=== PATIENT | female | born 1955 | race Caucasian/White ===

== ENCOUNTER 2016-05-24 12:11 | Day surgery (SDC) | payer OTHER ==
[~2016-05-24] VITALS: Ht 162.6 cm; Wt 78.0 kg
[2016-05-24] VITALS (11 sets, daily range): BP systolic 101–126; BP diastolic 62–74; PULSE 16–66; RESP 13–18; Ht 162.6 cm; Wt 78.0 kg
[2016-05-24 13:19] LABS: ADD SCAN DIFF NO
[2016-05-24 13:21] LABS: BASOPHILS % 0.7 % (0.0-2.0); EOSINOPHILS # 0.1 10^3/ul (0.0-0.5); EOSINOPHILS % 2.4 % (0.0-7.0); HEMATOCRIT 37.9 % (37.0-47.0); HEMOGLOBIN 12.7 g/dl (12.0-16.0); LYMPHOCYTES # 1.8 10^3/ul (0.8-2.9); MEAN CORPUSCULAR HEMOGLOBIN 31.1 pg (29.0-33.0); MEAN CORPUSCULAR HGB CONC 33.5 g/dl (32.0-37.0); MEAN CORPUSCULAR VOLUME 92.9 fl (82.0-101.0); MEAN PLATELET VOLUME 9.6 fl (7.4-10.4); MONOCYTE # 0.5 10^3/ul (0.3-0.9); MONOCYTES % 9.2 % (0.0-11.0); NEUTROPHIL # 3.4 10^3/ul (1.6-7.5); NEUTROPHILS % 57.5 % (39.0-77.0); PLATELET COUNT 279 10^3/UL (140-415); RED BLOOD COUNT 4.08 10^6/ul (4.20-5.40); WHITE BLOOD COUNT 5.8 10^3/ul (4.8-10.8)
[2016-05-24 13:35] LABS: INR 0.98
[2016-05-24 13:38] LABS: POTASSIUM 3.7 mmol/L (3.5-5.1)
[2016-05-24 13:43] LABS: CALCIUM 9.4 mg/dl (8.4-10.2); CREATININE 0.6 mg/dl (0.44-1.00); PARTIAL THROMBOPLASTIN TIME 30.5 Sec (25.0-35.0)
[2016-05-24] MEDS ORDERED: BUPIVACAINE 0.25% (MPF) 10 ML 10 ML VIAL ONE (14:04)
--- NOTE | 2016-05-24 14:27 | RADRPT ---
PROCEDURE: XR Chest. CLINICAL INDICATION: Preoperative, chest mass TECHNIQUE: Single frontal view of the chest was obtained COMPARISON: 06/13/2013 FINDINGS: The heart and mediastinum are within normal limits. The lungs are clear. There is no pleural effusion or pneumothorax. RPTAT: AA IMPRESSION: No acute disease. .Blade Reynolds MD, MD Date Time Electronically viewed and signed by .Blade Reynolds MD, on 05/24/2016 14:27 .S/
[2016-05-24] MEDS ORDERED: PROPOFOL 40 ML ONE (15:51)
[2016-05-24] MEDS ORDERED: LIDOCAINE 2% (SDV) 5 ML INJ ONE (15:51)
[2016-05-24] MEDS ORDERED: FENTAnyl 50 MCG/ML VIAL ONE (15:53)
[2016-05-24] MEDS ORDERED: CEFAZOLIN 1 GM INJ ONE (16:03)
[2016-05-24] MEDS ORDERED: HYDROCODONE/APAP (5/325) TAB PO ONE (16:30)
[2016-05-24] MEDS ORDERED: ONDANSETRON 4 MG INJ IV PRN (17:00)
[2016-05-24] MEDS ORDERED: MEPERIDINE 25 MG INJ IV PRN (17:00)
[2016-05-24] MEDS ORDERED: FENTAnyl 50 MCG/ML VIAL IV PRN ×3 (17:00)
[2016-05-24] MEDS ORDERED: OXYCODONE/ACETAMINOPHEN (5/325) TAB PO PRN (17:00)
[2016-05-24] MEDS ORDERED: hydrALAzine 20 MG INJ IV PRN (17:00)
[2016-05-24] MEDS ORDERED: EPHEDrine SULFATE 50 MG/5 ML SYG IV PRN (17:00)
[2016-05-24] MEDS ORDERED: LABETALOL HCL 20MG INJ IV PRN (17:00)
--- NOTE | 2016-05-24 17:03 | OPR ---
DATE OF OPERATION: 05/24/2016 INDICATION: This is a 60-year-old female with a chest mass. She requests surgical excision. Risks , alternatives, benefits, and personnel were discussed with the patient. The patient expressed unde rstanding and consents to the operation. PREOPERATIVE DIAGNOSIS: Chest mass. POSTOPERATIVE DIAGNOSIS: Chest mass. OPERATION PERFORMED 1. Excision of chest mass; a 6-cm incision and 5-cm mass. 2. Localized adjacent tissue transfer with the use of skin flaps. SURGEON: Loc Juárez MD SPECIMEN: Chest mass. COMPLICATIONS: None. ANESTHESIA: General. PROCEDURE IN DETAIL: The patient was taken to the OR, prepped and draped in the usual sterile fashi on. A surgical timeout was performed. IV antibiotics were given. A transverse incision was made over the chest mass with a 15-blade. Dissection cautery was carried down circumferentially around the chest mass, inclusive of a portion of the skin. The mass was exci sed. There was good hemostasis due to the tissue defect. Localized adjacent tissue transfer with t he use of skin flaps was performed. Multilayer closure with interrupted 3-0 Vicryl and skin vtior . Local anesthesia was injected. Dry dressings were applied. Dictated By: LOC PRIDE/CHARLES Conf#: [id number] DID#: [id number]
--- NOTE | 2016-05-24 21:02 | RADRPT ---
Vent Rate: 65 bpm RR Interval: 0 msec [place] Interval: 146 msec QRS Duration: 88 msec QT Interval: 432 msec QTC Interval: 449 msec P-R-T [place]: 25 - 46 - 46 degrees Normal sinus rhythm Normal ECG Electronically Signed By: Tank Fiore [id number]
== END 2016-05-24 18:25 | disposition home or self-care (01) ==
LOC: SDS 12:11
PROVIDERS: ATTEND Surgery
DX: L72.0 Epidermal cyst (principal)
CPT/HCPCS: 14000; 71010; 80048; 85025; 85610; 85730; 88307; 93005; J0690; J3010; Z7512; Z7610

== ENCOUNTER 2016-12-26 19:42 | Emergency (ER) | payer OTHER ==
[~2016-12-26] VITALS: Ht 157.5 cm; Wt 74.3 kg
[2016-12-26 19:47] VITALS: Ht 157.5 cm; Wt 74.3 kg
[2016-12-26] MEDS ORDERED: KETOROLAC 30 MG INJ IM STA (21:50)
--- NOTE | 2016-12-26 22:41 | RADRPT ---
PROCEDURE: XR Cervical Spine. CLINICAL INDICATION: Cervical spine pain. TECHNIQUE: AP, lateral and odontoid views of the cervical spine were performed. The images were re viewed on a PACS workstation. COMPARISON: None available FINDINGS: There is trace anterolisthesis of C4-C5 and C5-C6. There are small anterior osteophytes with modera te disc-space narrowing at C5-6. There are mild to moderate discogenic endplate changes at this leve l. The vertebral body heights are maintained. There is diffuse mild osteopenia. There is no evidenc e of fracture or dislocation. There is diffuse mild facet arthropathy. There is preservation of the remaining intervertebral disc spaces. There are no abnormal calcifications. The prevertebral soft ti ssues are normal. No radiopaque foreign bodies are identified. IMPRESSION: 1. Moderate spondylosis/degenerative enthesopathy at C5-6 with grade 1 anterolisthesis. 2. Diffuse mild facet spondylosis . 3. No acute fracture. RPTAT: HGAS .Spencer Lee MD, MD Date Time Electronically viewed and signed by .Spencer Lee MD, on 12/26/2016 22:40 .S/
--- NOTE | 2016-12-26 22:43 | RADRPT ---
PROCEDURE: XR Lumbar Spine. CLINICAL INDICATION: Back pain. TECHNIQUE: Complete lumbar spine study including AP, lateral, obliques and coned L5-S1 views was p erformed. COMPARISON: No similar studies are submitted for comparison. FINDINGS: Vertebral body stature and alignment maintained. There is no evidence of fracture or subluxation. N o destructive osseous lesions are seen. IMPRESSION: No evidence of compression fracture. RPTAT: HIKT .Jack Christiansen MD, MD Date Time Electronically viewed and signed by .Jack Christiansen MD, on 12/26/2016 22:43 .T/
--- NOTE | 2016-12-26 22:44 | RADRPT ---
PROCEDURE: XR finger. CLINICAL INDICATION: Trauma. TECHNIQUE: AP, lateral and oblique views of the right first finger was obtained. COMPARISON: There are no similar studies submitted for comparison. FINDINGS: There is normal bone mineralization.There is no acute fracture or dislocation.No osseous erosions ar e identified. The joint spaces are within normal limits.There is no soft tissue swelling. IMPRESSION: No acute fracture or dislocation. RPTAT: HIKT .Jack Christiansen MD, MD Date Time Electronically viewed and signed by .Jack Christiansen MD, on 12/26/2016 22:44 .T/
--- NOTE | 2016-12-26 23:57 | ERD ---
ER Documentation Chief Complaint Chief Complaint bib self, right arm and lower back pain x 2 weeks, caused by work HPI This is a 61 year-old female who presents the emergency department today complaining of neck pain that goes into her right arm, right thumb pain and low back pain. States that she has had this pain for the past 3 weeks. . States that one year ago she had a fall. States that she thinks she injured it at work. She has taken ibuprofen with limited improvement in symptoms. Denies any fevers or chills, trauma, shortness of breath. Denies any loss of bowel or bladder control. ROS All systems reviewed and are negative except as per history of present illness. Medications Home Meds Active Scripts Naproxen* (Naprosyn*) 500 Mg Tablet, 500 MG PO BID Y for PAIN AND/OR INFLAMMATION, #30 TAB Prov:MANUEL AYALA PA-C 12/27/16 Tramadol HCl (Tramadol HCl) 50 Mg Tablet, 50 MG PO Q4 Y for PAIN, #20 TAB Prov:MANUEL AYALA PA-C 12/27/16 Allergies Allergies: Coded Allergies: No Known Drug Allergy (Verified Allergy, Mild, 05/24/16) PMhx/Soc History of Surgery: No Anesthesia Reaction: No Hx Neurological Disorder: No Hx Respiratory Disorders: No Hx Cardiac Disorders: No Hx Psychiatric Problems: No Hx Miscellaneous Medical Probl: Yes (RT CHEST MASS) Hx Alcohol Use: No Hx Substance Use: No Hx Tobacco Use: No Smoking Status: Never smoker Physical Exam Vitals Vital Signs Date Time Temp Pulse Resp B/P Pulse Ox O2 Delivery O2 Flow Rate FiO2 12/26/16 19:47 98.5 81 18 162/80 100 Physical Exam Const: NAD Head: Atraumatic Eyes: Normal Conjunctiva ENT: Normal External Ears, Nose and Mouth. Neck: Full range of motion..~ No meningismus. Midline tenderness with bilateral paraspinal tenderness. Resp: Clear to auscultation bilaterally Cardio: Regular rate and rhythm, no murmurs Abd: Soft, non tender, non distended. Normal bowel sounds Skin: No petechiae or rashes Back: Lumbar spine midline tenderness. No paraspinal tenderness. Full active range of motion. No CVA tenderness. Ext: No cyanosis, or edema. No erythema or warmth. Full active range of motion. Pulses 2+. Distal neurovascularly intact. Right thumb tenderness to palpation. Good cap refill. Neur: Awake and alert Psych: Normal Mood and Affect Results 24 hrs Current Medications Medications (Trade) Dose Ordered Sig/Tr Route PRN Reason Start Time Stop Time Status Last Admin Dose Admin Ketorolac Tromethamine (Toradol) 30 mg ONCE STAT IM 12/26/16 21:50 12/26/16 21:51 DC 12/26/16 22:48 DIAGNOSTIC IMAGING REPORT Patient: NENO ORTIZ : 1955 Age: 61 Sex: F MR #: [id number] DOS: 12/26/16 0000 Ordering MD: MANUEL AYALA PA-C Location: [facility] Room/Bed: PROCEDURE: XR Cervical Spine. CLINICAL INDICATION: Cervical spine pain. TECHNIQUE: AP, lateral and odontoid views of the cervical spine were performed. The images were reviewed on a PACS workstation. COMPARISON: None available FINDINGS: There is trace anterolisthesis of C4-C5 and C5-C6. There are small anterior osteophytes with moderate disc-space narrowing at C5-6. There are mild to moderate discogenic endplate changes at this level. The vertebral body heights are maintained. There is diffuse mild osteopenia. There is no evidence of fracture or dislocation. There is diffuse mild facet arthropathy. There is preservation of the remaining intervertebral disc spaces. There are no abnormal calcifications. The prevertebral soft tissues are normal. No radiopaque foreign bodies are identified. IMPRESSION: 1. Moderate spondylosis/degenerative enthesopathy at C5-6 with grade 1 anterolisthesis. 2. Diffuse mild facet spondylosis . 3. No acute fracture. RPTAT: HGAS .Spencer Lee MD, Date Time Electronically viewed and signed by .Spencer Lee MD, MD on 12/26/2016 22: 40 .S/ CC: MANUEL AYALA PA-C DIAGNOSTIC IMAGING REPORT Patient: NENO ORTIZ : 1955 Age: 61 Sex: F MR #: [id number] DOS: 12/26/16 0000 Ordering MD: MANUEL AYALA PA-C Location: [facility] Room/Bed: PROCEDURE: XR Lumbar Spine. CLINICAL INDICATION: Back pain. TECHNIQUE: Complete lumbar spine study including AP, lateral, obliques and coned L5-S1 views was performed. COMPARISON: No similar studies are submitted for comparison. FINDINGS: Vertebral body stature and alignment maintained. There is no evidence of fracture or subluxation. No destructive osseous lesions are seen. IMPRESSION: No evidence of compression fracture. RPTAT: HIKT .Jack Christiansen MD, MD Date Time Electronically viewed and signed by .Jack Christiansen MD, MD on 12/26/2016 22:43 .T/ CC: MANUEL AYALA PA-C DIAGNOSTIC IMAGING REPORT Patient: NENO ORTIZ : 1955 Age: 61 Sex: F MR #: [id number] DOS: 12/26/16 0000 Ordering MD: MANUEL AYALA PA-C Location: [facility] Room/Bed: PROCEDURE: XR finger. CLINICAL INDICATION: Trauma. TECHNIQUE: AP, lateral and oblique views of the right first finger was obtained. COMPARISON: There are no similar studies submitted for comparison. FINDINGS: There is normal bone mineralization.There is no acute fracture or dislocation.No osseous erosions are identified. The joint spaces are within normal limits.There is no soft tissue swelling. IMPRESSION: No acute fracture or dislocation. RPTAT: HIKT .Jack Christiansen MD, MD Date Time Electronically viewed and signed by .Jack Christiansen MD, MD on 12/26/2016 22:44 .T/ CC: MANUEL AYALA PA-C Procedures/MDM This a 61-year-old female who presents the emergency department today complaining of multiple pain complaints for the past 3 weeks. She was complaining of neck pain with radicular symptoms and therefore did obtain images Per the radiology report is of the right thumb show no acute fracture dislocation. There is no osseous erosions. Joint spaces are within normal limits. There is no soft tissue swelling. Images of the lumbar spine show no evidence of compression fracture. There is no subluxation. Images of the cervical spine show mild to moderate degenerative changes at C5 and C6. There is diffuse mild facet spondylosis. There is no acute fracture. There is diffuse mild osteopenia. Patient is afebrile and otherwise well-appearing. She has no CVA tenderness and denies any dysuria night do not feel that she requires a UA. Of low suspicion for urinary tract infection, pyelonephritis or nephrolithiasis. I have low suspicion for septic joint, gout, cauda equina or abscess. Patient oxygen saturation 100% there is no swelling or warmth of the right extremity. I have low suspicion for DVT. Symptoms at this time is consistent with neck pain and low back pain likely sprain versus strain versus contusion versus degenerative disc disease. I have explained this to the patient. Given Toradol here in the emergency department. She will be given a short course of tramadol and Naprosyn for home. At this time the patient is stable for discharge and outpatient management. Patient should follow up with their PCP in the next 1-2 days. They may return to the emergency department sooner for any persistent or worsening of symptoms. Patient understood and agreed with the plan. Departure Diagnosis: Primary Impression: Neck pain Additional Impression: Back pain Back pain location: low back pain Chronicity: unspecified Back pain laterality: midline Sciatica presence: without sciatica Qualified Code: M54.5 - Midline low back pain without sciatica, unspecified chronicity Condition: Fair MANUEL AYALA PA-C Dec 26, 2016 23:57
[2016-12-27] MEDS ORDERED: TRAM50TA2 PO (00:18)
[2016-12-27] MEDS ORDERED: NAPR-260 PO (00:19)
== END 2016-12-27 00:33 | disposition home or self-care (01) ==
LOC: FTE 19:42
DX: M54.2 Cervicalgia (principal); M54.5 Low back pain
CPT/HCPCS: 72040; 72100; 73140; 96372; J1885; Z7502

== ENCOUNTER 2017-02-21 16:57 | Emergency (ER) | END 2017-02-21 19:51 | disposition home or self-care (01) ==

== ENCOUNTER 2017-11-08 11:58 | Emergency (ER) | END 2017-11-08 14:54 | disposition home or self-care (01) ==

== ENCOUNTER 2018-01-05 14:01 | Emergency (ER) | END 2018-01-05 18:16 | disposition home or self-care (01) ==

== ENCOUNTER 2018-02-07 21:11 | Emergency (ER) | payer OTHER ==
[~2018-02-07] VITALS: Wt 90.0 kg
[~2018-02-07 21:11] MED LIST: IBUP-1542 PO; LORA-441 PO; NAPR-985 PO; TRAM50TA2 PO
[2018-02-07 21:15] VITALS: Wt 90.0 kg
--- NOTE | 2018-02-07 22:24 | ERD ---
ER Documentation Chief Complaint Chief Complaint Left lower leg pain since 183, s/p fall HPI This is a 62-year-old female with a nonsignificant past medical history presents ED with complaints of left anterior knee, left anterior alatorre and left ankle pain since 6:30 PM this evening. Patient states that as she was mopping the floor of her house she had sat down and when she went to go to a standing position she started experiencing pain in her right anterior lower leg. Admits to painful range of motion, decreased range of motion and mild difficulty ambulating. Prem es tingling, numbness, lack of sensation other symptoms. No known drug allergies. ROS All systems reviewed and are negative except as per history of present illness. Medications Home Meds Active Scripts Ibuprofen* (Motrin*) 600 Mg Tab, 600 MG PO Q6H PRN for PAIN AND OR ELEVATED TEMP, #30 TAB Prov:PETRONA FLYNN DO 01/05/18 Lorazepam* (Ativan*) 0.5 Mg Tablet, 0.5 MG PO TID PRN for ANXIETY, #10 TAB Prov:JOHN CONDE MD 11/08/17 Tramadol HCl (Tramadol HCl) 50 Mg Tablet, 50 MG PO Q6 PRN for PAIN, #20 TAB Prov:JORI GRANT PA-C 02/21/17 Naproxen* (Naprosyn*) 500 Mg Tablet, 500 MG PO BID PRN for PAIN AND/OR INFLAMMATION, #30 TAB Prov:MANUEL AYALA PA-C 12/27/16 Tramadol HCl (Tramadol HCl) 50 Mg Tablet, 50 MG PO Q4 PRN for PAIN, #20 TAB Prov:MANUEL AYALA PA-C 12/27/16 Allergies Allergies: Coded Allergies: No Known Drug Allergy (Verified Allergy, Mild, 02/21/17) PMhx/Soc History of Surgery: Yes (right shoulder) Anesthesia Reaction: No Hx Neurological Disorder: No Hx Respiratory Disorders: No Hx Cardiac Disorders: No Hx Psychiatric Problems: No Hx Miscellaneous Medical Probl: Yes (RT CHEST MASS) Hx Alcohol Use: No Hx Substance Use: No Hx Tobacco Use: No Smoking Status: Never smoker Physical Exam Vitals Vital Signs Date Temp Pulse Resp B/P (MAP) Pulse Ox O2 O2 Flow FiO2 Time Delivery Rate 02/07/18 98.4 100 18 155/86 98 21:15 (109) Physical Exam Const: No acute distress Head: Atraumatic Eyes: Normal Conjunctiva ENT: Normal External Ears, Nose and Mouth. Neck: Full range of motion. No meningismus. Resp: Clear to auscultation bilaterally Cardio: Regular rate and rhythm, no murmurs Ext: No cyanosis, or edema Lower Extremity - left: Skin: No laceration, swelling or evidence of external trauma Compartments: Soft Motor: Full active range of motion hip/knee/ankle/foot Sensation: Intact to light touch FDWS/MF/LF/P surfaces. Bones: No tenderness palpation along left anterior knee, left anterior alatorre and lateral malleoli, nontender pelvis//foot Joints: No effusion or laxity Pulses/Perfusion: 2+ DP, Capillary refill < 2 seconds Neur: Awake and alert Psych: Normal Mood and Affect Results 24 hrs Current Medications Medications Dose Sig/Tr Start Time Status Last (Trade) Ordered Route PRN Stop Time Admin Dose Reason Admin Ibuprofen 800 mg ONCE ONCE 02/07/18 DC 02/07/18 (Motrin) PO 22:30 22:19 02/07/18 22:31 Procedures/MDM EKG, MONITORS, & DIAGNOSTIC IMAGING: [place] [address] Radiology Main Line: [phone] DIAGNOSTIC IMAGING REPORT Patient: NENO ORTIZ : 1955 Age: 62 Sex: F MR #: [id number] DOS: 02/07/182202 Ordering MD: JUSTIN BERNSTEIN PA-C Location: [facility] Room/Bed: PROCEDURE: XR Left Ankle. CLINICAL INDICATION: pain TECHNIQUE: AP, oblique and lateral views of the left ankle were performed. COMPARISON: None. FINDINGS: There is normal mineralization and alignment. No acute fracture is identified. There is a calcaneal heal spur noted. The joints are normal. The soft tissues are unremarkable. IMPRESSION: Calcaneal heal spur. No evidence of acute fracture or subluxation. RPTAT: HEUY r-carolin spangler, Physician Date Time Electronically viewed and signed by Physician eloy on 02/07/2018 23:39 ry/ CC: JUSTIN BERNSTEIN PA-C [id number] [place] [address] Radiology Main Line: [phone] DIAGNOSTIC IMAGING REPORT Patient: NENO ORTIZ : 1955 Age: 62 Sex: F MR #: [id number] DOS: 02/07/18 220 Ordering MD: JUSTIN BERNSTEIN PA-C Location: [facility] Room/Bed: PROCEDURE: XR Tibia and Fibula. CLINICAL INDICATION: pain TECHNIQUE: AP, lateral and oblique views of the left tibia and fibula were obtained. COMPARISON: No prior studies are available for comparison. FINDINGS: There is normal mineralization and alignment. No fracture or osseous lesion is identified. The joints are unremarkable. No soft tissue swelling is noted. There is a 3 mm soft tissue calcification in the mid anterior lower leg. IMPRESSION: Normal left tibia and fibula. RPTAT: HEUY Physician eloy Date Time Electronically viewed and signed by Physician eloy on 02/07/2018 23:38 ry/ CC: JUSTIN BERNSTEIN PA-C [id number] [place] [address] Radiology Main Line: [phone] DIAGNOSTIC IMAGING REPORT Patient: NENO ORTIZ : 1955 Age: 62 Sex: F MR #: [id number] DOS: 02/07/18 2203 Ordering MD: JUSTIN BERNSTEIN PA-C Location: [facility] Room/Bed: PROCEDURE: Left knee x-ray CLINICAL INDICATION: pain TECHNIQUE: AP, lateral and oblique views of the left knee were obtained. COMPARISON: None FINDINGS: There is normal mineralization. No acute fracture or dislocation is seen. There are no significant degenerative changes. There is no joint effusion. There is no significant soft tissue swelling. IMPRESSION: Unremarkable radiographs of the left knee. RPTAT: HEUY Physician eloy Date Time Electronically viewed and signed by avinash spangler Physician on 02/07/2018 23:36 ry/ CC: JUSTIN BERNSTEIN PA-C [id number] PROCEDURES: DME: Crutches Extremity: Left lower extremity Indication: Left lower extremity pain and difficulty ambulating The patient was consented at bedside prior to splint application and states understanding of risks, benefits, and alternatives. The patient was neurovascularly intact prior to and status post application of the splint. The patient tolerated the procedure well and there were no complications ER COURSE: The patient was given ibuprofen The medication was well tolerated and the patient reports improvement in symptoms. The patient was stable throughout ED course. I kept the patient and/or family informed of laboratory and diagnostic imaging results throughout the emergency room course. The patient was promptly evaluated and a treatment plan was devised based on H&P and other data. This plan was discussed with the patient who agreed and had no further questions or concerns prior to discharge. MEDICAL DECISION MAKING: This is a 52-year-old female who presents ED with complaints of left lower leg injury -that includes left anterior knee, left anterior alatorre and left lateral ankle, that occurred earlier today. X-ray of left knee, tib-fib and left ankle are unremarkable. This is likely a contusion or muscle related pain. Given that patient has pain with ambulation patient was given crutches to aid in ambulation. Patient was also advised to rice. History and physical examination other data not consistent with emergent processes including but not limited to fracture, dislocation, tendon rupture, ischemia, neurovascular injury, compartment syndrome, septic joint, avascular necrosis, osteomyelitis, necrotizing fasciitis, septic joint, septic arthritis, or other emergent conditions. Patient's vitals are stable and can be managed outpatient with close follow-up. Advised patient to follow-up with primary care in the next 48 hours. Return to ED with any worsening symptoms. DISPOSITION PLAN: We discussed follow up with the patient's primary care doctor within 24 to 48 hours. Patient counseled regarding my diagnostic impression and care plan. Prior to discharge all questions answered. Pt agrees with treatment plan and understands strict return precautions. Precautionary instructions provided including instructions to return to the ER if not improving or for any worsening or changing symptoms or concerns. SPECIALIST FOLLOW UP RECOMMENDED: None Patient has been advised to follow up with primary care in 1-2 days. Disclaimer: Inadvertent spelling and grammatical errors are likely due to EHR/dictation software use and do not reflect on the overall quality of patient care. Also, please note that the electronic time recorded on this note does not necessarily reflect the actual time of the patient encounter. Blood Pressure Assessment: Patient's blood pressure was elevated (>120/80) but appears stable without evidence of hypertension emergency or urgency. The patient was counseled about the risks of hypertension and urged to pursue outpatient monitoring and therapy within a week with their primary care physician. Departure Diagnosis: Primary Impression: Injury of left lower leg Encounter type: initial encounter Qualified Codes: S89.92XA - Unspecified injury of left lower leg, initial encounter Additional Impressions: Left anterior knee pain Pain in left alatorre Left lateral ankle pain Condition: Stable Patient Instructions: R.I.C.E., Sprain, Ankle, With X-Ray, Knee Sprain [facility] Additional Instructions: Paciente aconseja volver a Departamento de urgencias inmediatamente para sntomas nuevos o que empeoran . Paciente aconseja posteriores con el PCP en 1-2 farfan . Paciente verbaliza la comprehensin y est de acuerdo con el tratamiento y el curso de accin. Si el paciente no tiene ninguna de atencin primaria pueden seguir con [facility] [address] [place] [address] o [facility] + [address] [address] JUSTIN BERNSTEIN PA-C Feb 07, 2018 22:24
[2018-02-07] MEDS ORDERED: IBUPROFEN 800 MG TAB PO ONE (22:30)
[2018-02-07] MEDS ORDERED: IBUP-1542 PO (23:48)
[2018-02-08 00:13] VITALS: BP 133/72; PULSE 77; RESP 18
== END 2018-02-08 00:13 | disposition home or self-care (01) ==
LOC: FTE 21:11
DX: S89.92XA Unspecified injury of left lower leg, initial encounter (principal); S99.912A Unspecified injury of left ankle, initial encounter; W18.30XA Fall on same level, unspecified, initial encounter; Y92.9 Unspecified place or not applicable
CPT/HCPCS: 73562; 73590; 73610; Z7502; Z7610